=== PATIENT | female | born 1935 | race Caucasian/White ===

== ENCOUNTER 2019-08-14 08:37 | Outpatient (CLI) | payer MEDICARE, SELFPAY ==
--- NOTE | ~2019-08-14 | MM_ITS ---
EXAMINATION: MM screening [facility] BI w jahaira HISTORY: Screening mammogram TECHNIQUE: Craniocaudal and mediolateral oblique 3-D tomosynthesis images were obtained and synthetic 2-D images were generated. CAD analysis was submitted and interpreted. COMPARISON: 07/15/2018, 07/12/2017, 07/06/2016 BREAST PARENCHYMAL COMPOSITION: There are scattered areas of fibroglandular density. FINDINGS: A stable intramammary lymph node is noted in the upper outer quadrant of the left breast. T here is no evidence of suspicious mass, calcification, or architectural distortion to suggest maligna ncy in either breast. There has been no suspicious interval change. IMPRESSION: 1. No mammographic evidence of malignancy. 2. Recommend routine screening mammography while the patient remains in good health. BI-RADS Category 2: Benign finding(s). Reviewed, dictated and finalized at location A. IMPRESSION: 1. No mammographic evidence of malignancy. 2. Recommend routine screening mammography while the patient remains in good he alth. BI-RADS Category 2: Benign finding(s).
== END 2019-08-14 08:38 | disposition home or self-care (01) ==
DX: Z12.31 Encounter for screening mammogram for malignant neoplasm of breast (principal)
CPT/HCPCS: 77063; 77067

== ENCOUNTER 2020-08-15 08:04 | Outpatient (CLI) | payer MEDICARE, SELFPAY ==
--- NOTE | ~2020-08-15 | MM_ITS ---
EXAMINATION: MM screening [facility] BI w jahaira HISTORY: Screening mammogram TECHNIQUE: Craniocaudal and mediolateral oblique 3-D tomosynthesis images were obtained and synthetic 2-D images were generated. CAD analysis was submitted and interpreted. COMPARISON: 08/14/2019, 07/15/2018, 07/12/2017 BREAST PARENCHYMAL COMPOSITION: The breasts are heterogeneously dense, which may obscure small masses . FINDINGS: There is no evidence of suspicious mass, calcification, or architectural distortion to sugg est malignancy in either breast. There has been no suspicious interval change. IMPRESSION: 1. No mammographic evidence of malignancy. 2. Recommend routine screening mammography while the patient remains in good health. BI-RADS Category 1: Negative Reviewed, dictated and finalized at location A. IMPRESSION: 1. No mammographic evidence of malignancy. 2. Recommend routine screening mammography while the patient remains in good he alth. BI-RADS Category 1: Negative
== END 2020-08-15 08:05 | disposition home or self-care (01) ==
DX: Z12.31 Encounter for screening mammogram for malignant neoplasm of breast (principal)
CPT/HCPCS: 77063; 77067

== ENCOUNTER 2021-08-01 10:05 | Emergency (ER) | payer MEDICARE, SELFPAY ==
[2021-08-01 10:14] VITALS: BP 181/85; PULSE 81; RESP 16; TEMP 36.6; O2SAT 99
--- NOTE | 2021-08-01 10:14 | WPDEDEXPGENP ---
HPI - General Ped General Chief complaint: Ear Stated complaint: EAR CLOGGED Time Seen by Provider: 08/01/21 10:15 Source: patient Mode of arrival: ambulatory Limitations: no limitations History of Present Illness HPI narrative: 86-year-old female presented for complaint of right ear feels clogged for about 3 weeks. She endorses approximately once a year she gets her ear wax cleaned out at an urgent care. She denies ear pain, tinnitus, dizziness, nausea, vomiting, fevers or chills. Denies sinus congestion or pressure. She has not used any earwax softener. Related Data Home Medications Medication Instructions Recorded Confirmed atorvastatin 08/01/21 hydrochlorothiazide 08/01/21 metoprolol succinate PO 08/01/21 Allergies Allergy/AdvReac Type Severity Reaction Status Date / Time No Known Allergies Allergy Unverified 12/20/11 18:40 Pediatric Review of Systems Review of Systems: CONSTITUTIONAL: Denies body aches, fever, chills EYES: Denies visual changes, redness, or discharge. ENT: Endorses ear clogged denies rhinorrhea, congestion, sore throat, or otalgia. CARDIOVASCULAR: Denies chest pain, palpitations, or edema. RESPIRATORY: Denies cough or dyspnea. GASTROINTESTINAL: Denies abdominal pain, n/v GENITOURINARY: Denies dysuria or hematuria. SKIN: Denies rash, itching, or wounds. MUSCULOSKELETAL: Denies back pain, joint pain, or myalgia. NEUROLOGIC: Denies headache, numbness, tingling, or weakness. [facility] Comments At time of signature, agree with nursing past medical, surgical, social and family history. There is no relevant family history pertinent to the presenting complaint Pediatric Exam Narrative: Physical exam: GENERAL: Well-appearing HEAD: Normocephalic, atraumatic. EYES: EOMI. No redness or drainage. Conjunctivae normal. ENT: Mucous membranes pink and moist. No rhinorrhea. TMs unable to visualize bilaterally due to cerumen impaction. Throat normal. Uvula midline. NECK: Normal AROM. Supple. No lymphadenopathy. CHEST: No respiratory distress. Clear to auscultation. HEART: Regular rate and rhythm. No murmur appreciated. ABDOMEN: Soft, nontender, nondistended EXTREMITIES: Normal range of motion. SKIN: Warm, dry, no rash. Capillary refill normal. NEURO: Alert and oriented x3. Gait steady. PSYCH: Normal affect. General: Limitations: no limitations Course Course Emergency Course: Patient is aware of diagnosis, understands and agrees to treatment plan. Anticipatory guidance given. Patient agrees to follow-up as directed and is aware of reasons to seek care at the emergency department. Portions of this record may have been created with voice recognition software Level of Care: Express Care Visit Vital Signs Vital signs: Vital Signs Temperature 97.8 F 08/01/21 10:14 Pulse Rate 81 08/01/21 10:14 Respiratory Rate 16 08/01/21 10:14 Blood Pressure 181/85 H 08/01/21 10:14 Pulse Oximetry 99 08/01/21 10:14 Temperature 97.8 F 08/01/21 10:14 Pulse Rate 81 08/01/21 10:14 Respiratory Rate 16 08/01/21 10:14 Blood Pressure 181/85 H 08/01/21 10:14 Pulse Oximetry 99 08/01/21 10:14 Reviewed Procedures Ear Wax Removal Both Ears: Ear Wax Removal Date: 08/01/21 Cerumenolytic Used: other (warm water hydrogen peroxide ) Results: Re-examined: cerumen removed completely TM Examination: TM(s) intact, normal appearance Ear Canal Exam: atraumatic Patient Tolerated Procedure: well and no complications Technique: ear canal irrigated and ear canal curetted Additional Comments: Moderate amount of soft wax removed bilaterally, pt reported she could hear much better. Denies pain, ringing or dizziness. Medical Decision Making MDM Narrative Medical decision making narrative: patient is non-toxic appearing and is in no distress. Patient is appropriate for outpatient treatment and follow-up. Differential Diagnosis Differential Diagn
== END 2021-08-01 10:45 | disposition home or self-care (01) ==
PROVIDERS: Emergency Provider Nurse Practitioner Family
DX: H61.23 Impacted cerumen, bilateral (principal)
CPT/HCPCS: 69209; 99212; G0463

== ENCOUNTER 2021-09-02 07:48 | Outpatient (CLI) | payer MEDICARE, SELFPAY ==
--- NOTE | ~2021-09-02 | MM_ITS ---
EXAMINATION: MM screening [facility] BI w jahaira HISTORY: Screening mammogram TECHNIQUE: Craniocaudal and mediolateral oblique 3-D tomosynthesis images were obtained and synthetic 2-D images were generated. CAD analysis was submitted and interpreted. COMPARISON: 08/15/2020, 08/14/2019, 07/15/2018 bilateral screening mammogram examinations BREAST PARENCHYMAL COMPOSITION: The breasts are heterogeneously dense, which may obscure small masses . FINDINGS: Occasional bilateral benign calcifications. Stable benign appearing circumscribed upper out er quadrant intramammary left lymph node. There is no evidence of suspicious mass, calcification, or architectural distortion to suggest malignancy in either breast. There has been no suspicious interva l change. IMPRESSION: 1. No mammographic evidence of malignancy. 2. Recommend routine screening mammography in one year. BI-RADS Category 2: Benign finding(s). Reviewed, dictated and finalized at location A.
== END 2021-09-02 07:49 | disposition home or self-care (01) ==
DX: Z12.31 Encounter for screening mammogram for malignant neoplasm of breast (principal)
CPT/HCPCS: 77063; 77067

== ENCOUNTER 2022-07-21 10:40 | Emergency (ER) | payer MEDICARE, SELFPAY ==
--- NOTE | 2022-07-21 10:49 | ED.EAR ---
HPI - Ear Problem General Chief complaint: Ear Stated complaint: EARACHE Time Seen by Provider: 07/21/22 11:00 Source: patient and RN notes reviewed Mode of arrival: ambulatory Limitations: no limitations History of Present Illness HPI Narrative: 87-year-old female presents with concern for ear fullness an earache bilaterally. She reports she has been dealing with allergies and has some sinus drainage and congestion. Reports she has been taking an [id number] version of Mucinex D and Sudafed that she picked up on the aisle. She denies fever, aches, chills, sweats. Denies drainage from the ears. She reports she is currently on doxycycline for pneumonia MD Complaint: ear pain Related Data Home Medications Medication Instructions Recorded Confirmed atorvastatin 20 mg tablet 20 mg PO DAILY 08/01/21 07/21/22 hydrochlorothiazide 25 mg tablet 25 mg PO DAILY 08/01/21 07/21/22 metoprolol succinate 50 mg 50 mg PO DAILY 08/01/21 07/21/22 tablet,extended release 24 hr Allergies Allergy/AdvReac Type Severity Reaction Status Date / Time No Known Allergies Allergy Unverified 07/21/22 10:56 Review of Systems Review of Systems: CONSTITUTIONAL: Denies malaise, chills, sweats, or fever. EYES: Denies visual changes, redness, or discharge. ENT: Reports rhinorrhea, congestion. Denies sinus pain, and sore throat. Reports bilateral ear fullness and pain CARDIOVASCULAR: Denies chest pain, palpitations, or edema. RESPIRATORY: Reports improving cough. Denies dyspnea. GASTROINTESTINAL: Denies abdominal pain, nausea, vomiting, diarrhea SKIN: Denies rash or itching. MUSCULOSKELETAL: Denies myalgia. NEUROLOGIC: Denies headache. All systems reviewed & are unremarkable except as noted in HPI and below [facility] Comments At time of signature, agree with nursing past medical, surgical, social and family history. There is no relevant family history pertinent to the presenting complaint Exam Narrative: GENERAL: Well-appearing, well-nourished, and in no acute distress. HEAD: Normocephalic EYES: PERRLA, conjunctivae clear ENT: Nares clear, turbinates edematous, clear discharge. Mucous membranes moist. TM pearly hauser with dull light reflex bilaterally; no tragal tenderness. Oropharynx not erythematous without lesions. Tonsils not enlarged and without exudate, no drooling, no hoarseness, no trismus, uvula midline. NECK: Supple. No lymphadenopathy CHEST: Clear to auscultation, breath sounds equal. No wheezing, rhonchi, rales, or stridor. No respiratory distress, speaks in full sentences. HEART: Regular rate and rhythm. No murmur heard. SKIN: Warm, dry, no rash. NEURO: Alert and oriented x3. PSYCH: Normal mood and affect Course Course Emergency Course: Patient is aware of diagnosis, understands and agrees to treatment plan. Anticipatory guidance given. Patient agrees to follow-up as directed and is aware of reasons to seek care at the emergency department. Portions of this record may have been created with voice recognition software Level of Care: Express Care Visit Vital Signs Vital signs: Reviewed. Medical Decision Making MDM Narrative Medical decision making narrative: Differential diagnosis considered: Vieyra virus, strep pharyngitis, allergic rhinitis, upper respiratory tract infection, sinusitis, rhinosinusitis, nasopharyngitis. viral pharyngitis, otitis media, otitis externa, otitis effusion, cerumen impaction, foreign body. Exam findings show no acute concerns or changes; patient is non-toxic appearing and is in no distress. Patient is appropriate for outpatient treatment and follow-up. Critical Care Time Critical Care Time Critical Care Time: No Discharge Plan Discharge Clinical Impression: Fluid collection of middle ear Patient Disposition: Home, Self-Care Condition: Stable Instructions: Fluid In The Ear (Serous Otitis Media) (ED) Additional Instructions: (Stop taking the Mucinex and is Sudafed that you had
[2022-07-21 10:53] VITALS: BP 184/89; PULSE 72; RESP 16; TEMP 36.6; O2SAT 100
== END 2022-07-21 11:12 | disposition home or self-care (01) ==
PROVIDERS: Emergency Provider Nurse Practitioner
DX: H93.8X3 Other specified disorders of ear, bilateral (principal); I10 Essential (primary) hypertension
CPT/HCPCS: 99213; G0463

== ENCOUNTER 2023-08-05 15:54 | Outpatient (CLI) | payer MEDICARE, SELFPAY ==
--- NOTE | ~2023-08-05 | MM_ITS ---
EXAMINATION: MM screening [facility] BI w jahaira HISTORY: Screening mammogram TECHNIQUE: Craniocaudal and mediolateral oblique 3-D tomosynthesis images were obtained and synthetic 2-D images were generated. CAD analysis was submitted and interpreted. COMPARISON: 09/02/2021, 08/15/2020 bilateral screening mammogram examinations BREAST PARENCHYMAL COMPOSITION: The breasts are heterogeneously dense, which may obscure small masses . FINDINGS: Occasional benign calcifications including some prominent arterial calcification. Stable ci rcumscribed benign-appearing probable intramammary lymph node, upper outer quadrant of the left breas t. There is no evidence of suspicious mass, calcification, or architectural distortion to suggest mal ignancy in either breast. There has been no suspicious interval change. IMPRESSION: 1. No mammographic evidence of malignancy. 2. Recommend routine screening mammography in one year. BI-RADS Category 2: Benign finding(s). Reviewed, dictated and finalized at location A.
== END 2023-08-05 15:55 | disposition home or self-care (01) ==
DX: Z12.31 Encounter for screening mammogram for malignant neoplasm of breast (principal)
CPT/HCPCS: 77063; 77067

== ENCOUNTER 2025-02-27 08:49 | Outpatient (CLI) | payer MEDICARE, SELFPAY ==
--- NOTE | ~2025-02-27 | MM_ITS ---
EXAMINATION: MM screening mathieu BI w jahaira HISTORY: Screening TECHNIQUE: Craniocaudal and mediolateral oblique 3-D tomosynthesis images were obtained and synthetic 2-D images were generated. CAD analysis was submitted and interpreted. COMPARISON: Comparison to multiple prior studies sequentially, with oldest reviewed study dated 07/12/2017. BREAST PARENCHYMAL COMPOSITION: Not dense: There are scattered areas of fibroglandular density. FINDINGS: There is no evidence of suspicious mass, calcification, or architectural distortion to suggest malignancy in either breast. There has been no suspicious interval change. IMPRESSION: 1. No mammographic evidence of malignancy. 2. Recommend routine screening mammography in one year. BI-RADS Category 1: Negative Reviewed, dictated and finalized at location [facility]
--- OUTSIDE RECORDS SUMMARY | 2025-02-27 09:11 | XMS_ITS | Encounter Summary ---
Author Organization [facility] Address 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 Gender Identity Not on file Sexual Orientation Not on file documented as of this encounter Plan of Treatment Upcoming Encounters Date Type Department Care Team (Late st Contact Info) Description 08/07/2025 10:00 AM CDT Office Visit [facility] [place] [address] [place] [address] Yari Syed PA [address] [place] [address] 02/11/2026 10:20 AM UNIVERSITY EXTENSION SPECIALIST Office Visit [facility] [address] [place] [address] Sander Solorzano DO [address] [place] [address] documented as of this encounter Visit Diagnoses Diagnosis Other specified examination- Primary documented in this encounter Care Teams Item Repair Manager Relationship Specialty Start Date End Date Sander Solorzano DO [address] [place] [address] PCP - General Family Practice 02/19/10 documented as of this encounter
--- OUTSIDE RECORDS SUMMARY | 2025-02-27 09:11 | XMS_ITS | Encounter Summary ---
Author Organization [facility] Address [address] [place] [address] Care Team Providers Care Supervisor Shipfitters Name Role Phone Sander Solorzano DO Primary Care Provider Encounter Details Date Type Department Care Team (Late st Contact Info) Description 07/31/2005 Outpatient Historical [facility] Thai West MD [address] [place] [id number] Special Screening for Malignant Neoplasms, Colon (Primary Dx) Social History Tobacco Use Types Packs/Day Years Used Date Smoking Tobacco: Never Assessed Comments Unknown Sex and Gender Information Value Date Recorded Sex Assigned at Not on file Legal Sex Female 4:42 AM [employer]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 Gender Identity Not on file Sexual Orientation Not on file documented as of this encounter Plan of Treatment Upcoming Encounters Date Type Department Care Team (Late st Contact Info) Description 08/07/2025 10:00 AM CDT Office Visit [facility] [address] [place] [address] Yari Syed PA [address] [place] [address] 02/11/2026 10:20 AM 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 Office Visit [facility] [address] [place] [address] Sander Solorzano DO [address] [place] [address] documented as of this encounter Visit Diagnoses Diagnosis Special screening for malignant neoplasms, colon- Primary documented in this encounter Care Teams Supervisor Shipfitters Relationship Specialty Start Date End Date Sander Solorzano DO [address] [place] [address] PCP - General Family Practice 02/19/10 documented as of this encounter
--- OUTSIDE RECORDS SUMMARY | 2025-02-27 09:11 | XMS_ITS | Encounter Summary ---
Author Organization [facility] Address [address] [place] [address] Care Team Providers Care Worm Picker Name Role Phone Sander Solorzano DO Primary Care Provider [phone] Reason for Visit * Reason Comments Remote Monitoring Encounter Details Date Type Department Care Team (Late st Contact Info) Description 11/24/2024 Telephone [facility] [place] [address] [place] [address] Sander Solorzano DO [address] [place] [address] Remote Monitoring Social History Tobacco Use Types Packs/Day Years Used Date Smoking Tobacco: Never Smokeless Tobacco: Never Alcohol Use Standard Drinks/Week Comments Yes 0 (1 standard drink = 0.6 oz pur e alcohol) Occ Comments No Sex and Gender Information Value Date Recorded Sex Assigned at Not on file Legal Sex Female 4:42 AM GREY PERCHER Gender Identity Not on file Sexual Orientation Not on file 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 Ceci Ponce, RN to [facility] [place] Cnc Laser Operator Yari Syed PA (Selected Message) ASIM 11/24/24 10:56 AM Assts: [facility]; Patient is scheduled for appt. Faxed records request to [facility]. * Telephone Encounter - Ceci Ponce RN - 11/24/2024 10:44 AM CDT 11/24/2024 10:44 AM Returned call and spoke with Lori. Discussed she fell on 11/21 fell and hurt her left arm and sliced open her right elbow and steri strips were placed with bandaid and neosporin and scraped her rightleg and she was taken to [facility] on [facility], xrays were done on the left arm. Using ice and thereis quite a bit of swelling and bruising and elevating at rest, taking tylenol as needed. Denies anynumbness or tingling and denies pain currently. Patient is scheduled for appointment 11/28/24 when she is back in town with PREET Greenberg per daughterrequest. Ceci WEBER * Telephone Encounter - No Pena PCA - 11/24/2024 9:59 AM CDT Copied from [facility] #[id number]. Topic: Patient Reported Outcome Metrics >> Nov 24, 2024 9:53 AM No Thakur wrote: Caller Name: daughter on phi Callback Number: Telephone Information: Call Notes: Caller is reporting Follow up information from an appointment Patient needs to report Daughter states fell down on the stair carrying a luggage on the and went [facility]- patient is elbow is still bruise up, daughter states patient is currently in [place] and will be back on Nov 27. Daughter is requesting to look at the report sent from [facility]. Daughter request for patient to be seen next Wednesday, contact center tried to schedule no available appointment on that day. documented in this encounter Plan of Treatment Upcoming Encounters Date Type Department Care Team (Late st Contact Info) Description 08/07/2025 10:00 AM CDT Office Visit [facility] [place] [address] [place] [phone] Yari Syed PA [address] [place] [phone] 02/11/2026 10:20 AM GREY PERCHER Office Visit [facility] [place] [address] [place] [phone] Sander Solorzano DO [address] [place] [phone] documented as of this encounter Visit Diagnoses Not on filedocumented in this encounter Care Teams Worm Picker Relationship Specialty Start Date End Date Sander Solorzano DO [address] [place] [phone] PCP - General Family Practice 02/19/10 documented as of this encounter
--- OUTSIDE RECORDS SUMMARY | 2025-02-27 09:11 | XMS_ITS | Clinical Summary ---
Author Organization [facility] Address [address] [place] [place] [address] Phone Care Team Providers Care Hot Mill Roller Name Role Phone Rashad, Andrew Primary Care Provider [phone] Allergies No known active allergies Medications MULTIVITAMIN/IRON/ FOLIC ACID (CENTRUM ULTRA WOMEN'S ORAL) Daily Active aspirin (ECOTRIN EC) 81 mg Tablet, Delayed Release (E.C.) Take 81 mg by mouth daily. Active Vit A,C,E-Sczr-Gblocq [id number] xpkf-an-dezp Capsule 2 tab(s) Active valACYclovir (VALTREX) 1 gram tablet TAKE 1 TABLET BY MOUTH EVERY DAY 90 Tablet 1 11/05/19 21 Active Additional Information Patient taking differently: DAILY PRN, TAKE 1 TABLET BY MOUTH EVERY DAY, Reported on 02/12/2025 VITAMIN B COMPLEX ORAL Take by mouth. Activ e albuterol sulfate HFA 90 mcg/actuation aerosol inhaler Take 2 Puffs by inhalation every 4 hours as needed for Wheezing or Shortness of Breath. Rinse mouth after usage 8.5 Gram 07/15/19 23 Active calcium as carbonate (Calcium 600) 1,500 mg (600 mg elemental) Tablet Take 1 Tablet (600 mg) by mouth 2 times daily. 10/12/19 24 Active cholecalciferol, Vitamin D3, 50 mcg (2,000 unit) Tablet Take 1 Tablet (2,000 Units) by mouth daily. 10/12/19 24 Active fluticasone propionate (FLONASE) 50 mcg/spray [place]ck[place], Suspension nasal inhalerIndications :Allergic rhinitis, unspecified seasonality, unspecified trigger Administer 2 Sprays in each nostril daily. shake before using 16 Gram 11/18/19 24 Active ALPRAZolam (XANAX) 0.25 mg tabletIndications: Anxiety state TAKE 1 TABLET(0.25 MG) BY MOUTH EVERY NIGHT NEEDED FOR ANXIETY 30 Tablet 5 08/23/19 25 Active atorvastatin (LIPITOR) 20 mg tabletIndications: Mixed hyperlipidemia TAKE 1 TABLET(20 MG) BY MOUTH DAILY 100 Tablet 1 09/13/19 25 Active hydroCHLOROthiazid e 25 mg tabletIndications: Benign hypertension TAKE 1 TABLET(25 MG) BY MOUTH DAILY 100 Tablet 1 10/25/19 25 Active metoprolol succinate (TOPROL XL) 50 mg Extended Release 24 hour tabletIndications: Benign hypertension TAKE 1 AND 1/2 TABLETS BY MOUTH EVERY DAY 150 Tablet 11/16/19 25 Active respiratory syncytial virus recombinant, adjuvanted (AREXVY) vaccine injection kit Inject 0.5 mL (120 mcg) by intramuscular injection one time only for 1 dose. 0.5 mL 02/13/20 25 025 Active Problems Patient Care Coordination No te Formatting of this note migh t be different from the original. Primary Care: Sander Soolrzano DO Referring Provider: Sander Solorzano DO [address] [place] [address] Other: Problem Noted Date Diagnosed Date Atherosclerosis of aorta 08/03/2022 Overview (08/03/2022): CXR 07/14/22 Other female genital prolapse 02/17/2019 Assessment & Plan (08/21/2024 9:19 PM CDT): - Continues to use pessary and hormone therapy as prescribed Exudative age-related macula r degeneration of right eye with active choroidal neovascularization 08/11/2018 Assessment & Plan (08/21/2024 9:19 PM CDT): Stable. - Receives an injection every 3 months - Reports no pain, blurry vision, or double vision - Some irritation in the eye, but does not affect vision - Follow-up with eye doctor on Wednesday to address irritation Benign hypertension 02/06/2018 Assessment & Plan (08/21/2024 9:19 PM CDT): - Blood pressure managed with hydrochlorothiazide and metoprolol, taken daily - [facility] - Advised to continue current medication regimen Mixed hyperlipidemia 02/06/2018 Assessment & Plan (08/21/2024 9:19 PM CDT): - Currently taking Lipitor daily - Advised to continue current medication regimen - Blood work is due and will be ordered - Lipid panel, CMP, CBC/diff, TSH ordered Cystocele, midline 02/10/2017 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 Plan STFU History of TIA (transient ischemic attack) 02/09 Senile osteoporosis 01/22/2012 Assessment & Plan (08/21/2024 9:19 PM CDT): - Takes calcium and vitamin D supplements - Continue current regimen - She does not want to treat with prescription medication Encounters Date Type Department Care Team Description 02/26/2025 Refill [facility] [place] [address] [place] [address] Sander Solorzano DO Benign hypertension 02/20/2025 External Device Data STL ABSTRACTION Provider, Abstract 02/12/2025 2:20 PM CONSTRUCTION [employer]IT[employer] Office Visit [facility] [address] [place] [address] Sander Solorzano DO Routine general medical examination at a health care facility (Primary Dx); Mixed hyperlipidemia; Benign hypertension; Traumatic hematoma of right upper arm, subsequent encounter 01/26/2025 Telephone [facility] [address] [place] [address] Sander Solorzano, DO Wants Appointment 01/05/2025 10:15 AM CDT Clinical Support [facility] [address] [place] [address] Immunization due (Primary Dx) 12/22/2024 10:00 AM CDT Office Visit [facility] [address] [place] [address] Sander Solorzano DO Traumatic hematoma of right upper arm, subsequent encounter (Primary Dx); Benign hypertension; Mixed hyperlipidemia; Exudative age-related macular degeneration of right eye with active choroidal neovascularization (CMS/HCC); Senile osteoporosis; Other female genital prolapse 12/05/2024 External Device Data STL ABSTRACTION Provider, Abstract 12/01/2024 7:30 AM CDT - 12/01/2024 11:59 PM CDT Hospital Encounter [facility] Akila Gonzalez [address] [place] [address] Yari Syed PA Discharge Disposition: Home or Self Care 11/29/2024 Results Follow-Up [facility] [address] [place] [address] Yari Syed PA PROTIME-INR, CBC WITH DIFFERENTIAL, US DOPPLER VENOUS ARM LEFT 11/28/2024 2:30 PM CDT Office Visit [facility] [address] [place] [address] Yari Syed PA Contusion of right upper extremity, initial encounter (Primary Dx); Other specified injury of vein at forearm level, left arm, initial encounter from Last 3 Months Immunizations Immunization Administration Dates Next Due (PFIZER KIERSTEN)(12 YR UP PRIMA RY SERIES) COVID-19 VACCINE - EMERGENCY USE AUTHORIZATION, MRNA, KIERSTEN(PF) 30 MCG/0.3 ML IM SUSP 05/26/2021 (PFIZER)(12 YR UP) COVID-19 VACCINE - EMERGENCY USE AUTHORIZATION, MRNA, [id number](PF) 30 MCG/0.3 ML IM SUSP 06/16/2020,05/19/2020 (PREVNAR 13)(6 WKS UP) PNEUM OCOCCAL CONJUGATE (PCV13) 0.5 ML, IM 01/22/2015 (SPIKEVAX) (12 YRS UP PRIMAR Y SERIES) COVID-19 VACCINE - [id number](PF) 100 MCG/0.5 ML IM SUSP 05/26/2021,06/16/2020,05/19/2020 (TENIVAC)(7 YRS UP) TETANUS AND DIPHTHERIA TOXOIDS, ADSORBED (5 LF OF TETANUS TOXOID AND 2 LF OF DIPHTHERIA TOXOID), 0.5ML (PF), IM 07/25/2004 INFLUENZA VACCINE HIGH DOSE QUADRIVALENT 65 YR UP PF IM 02/19/2023,01/19/2022,01/07/2021,12/21 INFLUENZA VACCINE HIGH DOSE TRIVALENT SPLIT VIRUS, (65 YR UP), 0.5ML (PF), IM 01/05/2025,03/01/2024 INFLUENZA VACCINE QUADRIVALE NT 3 YR UP PF IM 02/08/2018 Influenza Vaccine High Dose 65+ Yrs IM 9 PREVNAR (PCV13) pneumococcal 13-valent conjugate Vaccine 01/22/2015 Pneumococcal Polysaccharide Vacc 23-adi IM SCHIP 01/25/2004 Zoster Vaccine Live SQ 03/16/2008 Family History Medical History Relation Name Comments Hypertension Brother Kidney Disease Brother both kidneys removed/passed Parkinson's Disease Brother Healthy Daughter 1 Healthy Daughter 2 Heart Attack Father age 65 Heart Failure Father Hypertension Father Diabetes Maternal Grandmother Lung Cancer Maternal Uncle 1 Colon Cancer Maternal Uncle 2 Intestinal Dementia Mother Stroke Mother mini Thyroid Cancer Paternal Uncle Breast Cancer Neg Hx Ovarian Cancer Neg Hx Uterine Cancer Neg Hx Relation Name Status Comments Brother (Age 80) Daughter 1 Alive Daughter 2 Alive Father (Age 65) [place] (smoker, non excercise) Maternal Grandfather Maternal Grandmother Maternal Uncle 1 Maternal Uncle 2 Mother (Age 95) Old age Paternal Grandfather (Age 90) Ol d age Paternal Grandmother Paternal Uncle Social History Tobacco Use Types Packs/Day Years Used Date Smoking Tobacco: Never Smokeless Tobacco: Never Tobacco Cessation:Counseling Given: Not Answered Alcohol Use Standard Drinks/Week Comments Yes 0 (1 standard drink = 0.6 oz pur e alcohol) Occ Comments No Sex and Gender Information Value Date Recorded Sex Assigned at Not on file Legal Sex Female 4:42 AM [employer] Gender Identity Not on file Sexual Orientation Not on file 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 Not on file Not on file Last Filed Vital Signs Vital Sign Reading Time Taken Comments Blood Pressure 133/86 02/12/2025 2:18 PM [employer] Pulse 66 02/12/2025 2:18 PM [employer] Temperature 36.7 C (98 F) 08/09/2024 10:27 AM CDT Respiratory Rate 18 08/05/2022 1:15 PM CDT Oxygen Saturation 96% 12/22/2024 9:50 AM CDT Inhaled Oxygen Concentration - - Weight 56 kg (123 lb 8 oz) 02/12/2025 2:18 PM CS T Height 154.9 cm (5' 1) 02/12/2025 2:18 PM [employer] Body Mass Index 23.34 02/12/2025 2:18 PM [employer] Plan of Treatment Upcoming Encounters Date Type Department Care Team (Late st Contact Info) Description 08/07/2025 10:00 AM CDT Office Visit [facility] [place] [address] [place] [address] Yari Syed PA [address] [place] [address] 02/11/2026 10:20 AM CONSTRUCTION J[employer]IT[employer] Office Visit [facility] [address] [place] [address] Sander Solorzano DO [address] [place] [address] Health Maintenance Due Date Last Done Comments DTAP/TDAP/TD VACCINES (1 - Tdap) 07/26/2004 07/26/19 05 ZOSTER VACCINE (2 of 3) 05/11/2008 03/16/2008 RSV VACCINE (60+ or ) (1 - 1-dose 75+ series) 2012 BREAST CANCER SCREENING 08/04/2024 08/05/19 24, 09/02/2021, 08/15/2020, Additional history exists COVID-19 Vaccine (2024-2 6 season) 2024 05/26/2021, 05/26/2021, 06/16/2020, Additional history exists OSTEOPOROSIS SCREENING 10/10/2025 , 01/29/2022, 12/13/2019, Additional history exists PNEUMOCOCCAL VACCINE 50+ YEARS Completed 1 , 01/22/2015, 01/25/2004 INFLUENZA VACCINE Completed 01/05/2025, , 02/19/2023, Additional history exists [place] ([place]) Preventative Visit/Annual Wellness Visit Completed 02/12/2025, 08/09/2024, 03/01/2024, Additional history exists Procedures Procedure Name Priority Date/Time Associated Diagnosis Comments US DOPPLER VENOUS ARM LEFT Routine 12/01/2024 8:00 AM CDT Contusion of right upper extremity, initial encounter Other specified injury of vein at forearm level, left arm, initial encounter CBC WITH DIFFERENTIAL Routine 11/28/2024 4:20 PM CDT Contusion of right upper extremity, initial encounter PROTIME-INR Routine 11/28/2024 4:20 PM CDT Contusion of right upper extremity, initial encounter XR DEXA BONE DENSITY AXIAL 1 OR MORE SITES Routine 10/11/2023 2:21 PM CDT Senile osteoporosis MAMMO SCREENING BILAT Routine 08/05/2023 10:56 AM CDT from Last 3 Months or Most Recently Relevant to Health Maintenance Results * US DOPPLER VENOUS ARM LEFT (12/01/2024 8:00 AM CDT) Anatomical Region Laterality Modality Upper Extremity Ultrasound 12/01/2024 7:33 AM CDT Narrative 12/01/2024 1:10 PM CDT [place] [address] [place] [address] [email or web address] Venous Exam Limited Upper Extremity Duplex Patient: Kaye Tadeo Study ID: [id number] Gender: F : 1935 Age: 89 Race: CAU Height Study Date: 12/01/2024 Weight: Access. #: [id number] *Referring Physician:Yari Camacho Tabatha Marie Stabler *Ordering Physician:Yari Camacho *Plastic Surgery Nurse:Shelby Rubin History: Swelling in the left upper extremity. PMH: No prior study is available for comparison. Risk factors: Recent trauma. Study data: Study status: Routine. Left upper extremity venous duplex. Doppler flow study including spectral analysis, color and hauser scale imaging. Birthdate: Patient birthdate: 1935. Age: Patient is 89year(s) old. Sex: gender: female. Study date: Study date: 12/01/2024. Study time: 07:33 AM. Location: Vascular laboratory. Patient status: Outpatient. Impressions Study data: No prior study is available for comparison. No evidence of deep or superficial vein thrombosis involving the veins of the left upper extremity. Incidental findings: A hematoma is noted incidentally on the left at the area of concern measuring 4.49 x 1.81 x 5.25 cm. Tables: Venous: + +-------+ + !Location !Overall!Flow properties ! + +-------+ + !Left internal jugular!Patent !Phasic; spontaneous; compressible ! + +-------+ + !Left subclavian !Patent !Phasic; spontaneous; normal augmentation; ! ! ! !compressible ! + +-------+ + !Left axillary !Patent !Phasic; spontaneous; normal augmentation; ! ! ! !compressible ! + +-------+ + !Left brachial !-------!Compressible ! + +-------+ + !Left cephalic !-------!Compressible ! + +-------+ + !Left basilic !-------!Compressible ! + +-------+ + !Right subclavian !Patent !Phasic; spontaneous; normal augmentation; ! ! ! !compressible ! + +-------+ + *Velocities are expressed in cm/s, Diameters are expressed in mm Prepared and Electronically Authenticated Kwadwo Michelle [id number] Procedure Note Kwadwo Michelle MD - 12/01/[address] [address] [email or web address] Venous Exam Limited Upper Extremity Duplex Patient: Kaye Tadeo Study ID: [id number] Gender: F : 1935 Age: 89 Race: CAU Height Study Date: 12/01/2024 Weight: Access. #: [id number] *Referring Physician:Yari Camacho Tabatha Marie Stabler *Ordering Physician:Yari Camacho *Plastic Surgery Nurse:* Shelby Russell History: Swelling in the left upper extremity. PMH: No prior studyis available for comparison. Risk factors: Recent trauma. Study data: Study status: Routine. Left upper extremity venousduplex. Doppler flow study including spectral analysis, color and hauser scale imaging. Birthdate: Patient birthdate: 1935. Age: Patient is 89year(s) old. Sex: gender: female. Study date: Study date: 12/01/2024. Study time: 07:33 AM. Location: Vascular laboratory.Patient status: Outpatient. Impressions Study data: No prior study is available for comparison. No evidence ofdeep or superficial vein thrombosis involving the veins of the left upper extremity. Incidental findings: A hematoma is noted incidentally on the left at thearea of concern measuring 4.49 x 1.81 x 5.25 cm. Tables: Venous: + +-------+ + !Location !Overall!Flow properties! + +-------+ + !Left internal jugular!Patent !Phasic; spontaneous; compressible! + +-------+ + !Left subclavian !Patent !Phasic; spontaneous; normal augmentation;! ! ! !compressible! + +-------+ + !Left axillary !Patent !Phasic; spontaneous; normal augmentation;! ! ! !compressible! + +-------+ + !Left brachial !-------!Compressible! + +-------+ + !Left cephalic !-------!Compressible! + +-------+ + !Left basilic !-------!Compressible! + +-------+ + !Right subclavian !Patent !Phasic; spontaneous; normal augmentation;! ! ! !compressible! + +-------+ + *Velocities are expressed in cm/s, Diameters are expressed in mm Prepared and Electronically Authenticated Kwadwo Michelle [id number] us Yari OVIEDO ORDERABLES F inal Result * CBC WITH DIFFERENTIAL (11/28/2024 4:20 PM CDT) Pathologist [facility] WBC 7.7 3.8 - 10.8 Thousand/u L [facility] RBC 3.90 3.80 - 5.10 Million/uL [facility] HEMOGLOBIN 12.8 11.7 - 15.5 g/dL [facility] HEMATOCRIT 38.7 35.0 - 45.0 % [facility] MCV 99.2 80.0 - 100.0 fL [facility] MCH 32.8 27.0 - 33.0 pg [facility] MCHC 33.1 32.0 - 36.0 g/dL [facility] Comment: For adults, a slight decrease in the calculated MCHC value (in the range of 30 to 32 g/dL) is most likely not clinically significant; however, it should be interpreted with caution in correlation with other red cell parameters and the patient's clinical condition. RDW 11.5 11.0 - 15.0 % [facility] PLATELETS 198 140 - 400 Thousand/u L [facility] MPV 10.6 7.5 - 12.5 fL [facility] NEUTROPHIL ABSOLUTE 4,913 1,500 - 7,800 cells/uL [facility] LYMPHOCYTE ABSOLUTE 1,810 850 - 3,900 cells/uL [facility] MONOCYTE ABSOLUTE 839 200 - 950 cells/uL [facility] EOSINOPHIL ABSOLUTE 100 15 - 500 cells/uL [facility] BASOPHILS ABSOLUTE 39 0 - 200 cells/uL [facility] NEUTROPHIL 63.8 % [facility] LYMPHOCYTES 23.5 % [facility] MONOCYTE 10.9 % [facility] EOSINOPHILS 1.3 % [facility] BASOPHILS 0.5 % [facility] Comment: Test Performed at: [facility] [address] [place] [id number] Marcos Miles MD Blood 11/28/2024 4:20 PM CDT 11/28/2024 4:20 PM CDT us Yari OVIEDO HEMATOLOGY ORDERA BLES Final Result [facility] [phone] [facility] [address] * PROTIME-INR (11/28/2024 4:20 PM CDT) INR 1.0 [facility] Comment: Reference Range 0.9-1.1 Moderate-intensity Warfarin Therapy 2.0-3.0 Higher-intensity Warfarin Therapy 3.0-4.0 PROTIME 11.0 9.0 - 11.5 sec [facility] odilon Greene Comment: For additional information, please refer to http://education.Ingen.io/faq/DRA572 (This link is being provided for informational/ educational purposes only.) Test Performed at: [place] [address] [place] [address] Marcos Miles Blood 11/28/2024 4:20 PM CDT 11/28/2024 4:20 PM CDT us Yari OVIEDO HEMATOLOGY ORDERA BLES Final Result [facility] [phone] [place] [address] [place] [address] * XR DEXA BONE DENSITY AXIAL 1 OR MORE SITES (10/11/2023 2:21 PM CDT) Anatomical Region Laterality Modality Computed Radiogr aphy 10/11/2023 2:21 PM CDT Impressions 10/11/2023 2:29 PM CDT FINDINGS/IMPRESSION: Bone density measurements were made of the lumbar spine, hips, and left forearm. Lowest T score of -3.3, previously -3.1, consistent with osteoporosis and high risk of fracture. FRAX: 10 year probability of major osteoporotic fracture is 28.6 %. 10 year probability of hip fracture is 11.3 %. Please refer to the full report available in [facility] under the PACS Images tab. If a faxed copy is needed, please call [phone]. DICTATION LOCATION: [facility] Narrative 10/11/2023 2:29 PM CDT SUMMARY DEXA REPORT DATE: 10/11/2023 2:21 PM INDICATION: Postmenopausal Procedure Note Marylou Myers MD - 10/11/2023 SUMMARY DEXA REPORT DATE: 10/11/2023 2:21 PM INDICATION: Postmenopausal FINDINGS/IMPRESSION: Bone density measurements were made of the lumbar spine, hips, and left forearm. Lowest T score of -3.3, previously -3.1, consistent with osteoporosis and high risk of fracture. FRAX: 10 year probability of major osteoporotic fracture is 28.6 %. 10 year probability of hip fracture is 11.3 %. Please refer to the full report available in [facility] under the PACS Images tab. If a faxed copy is needed, please call [phone]. DICTATION LOCATION: [facility] us Boris Araujo PA-C DIAGNOSTIC IMAGING ORD ERABLES Final Result * MAMMO SCREENING BILAT (08/05/2023 10:56 AM CDT) Anatomical Region Laterality Modality Breast Bilateral Mammography us Abstract Provider MAMMO ORDERABLES Edited Result - Final from Last 3 Months or Most Recently Relevant to Health Maintenance Insurance [facility] [id number] Advance Directives For more information, please contact: [phone] Documents on File Type Date Recorded Patient Paedodontist Expl anation Advance Directive Living Will 05/12/2024 3:34 PM 2024-05-12 Advance Directive Care Teams Hot [employer] Roller Relationship Specialty Start Date End Date Sander Solorzano DO [address] [place] [id number] PCP - General Family Practice 02/19/10
--- OUTSIDE RECORDS SUMMARY | 2025-02-27 09:11 | XMS_ITS | Encounter Summary ---
Author Organization [facility] Address [address] [place] [address] Care Team Providers Care Rehabilitation Engineer Name Role Phone Sander Solorzano DO Primary Care Provider [phone] Encounter Details Date Type Department Care Team (Late st Contact Info) Description 05/10/2001 Outpatient Historical [facility] Tamiko Pate BONE & CARTILAGE DIS NOS (Primary Dx) Social History Tobacco Use Types Packs/Day Years Used Date Smoking Tobacco: Never Assessed Comments Unknown Sex and Gender Information Value Date Recorded Sex Assigned at Not on file Legal Sex Female 4:42 AM [employer] Gender Identity Not on file Sexual Orientation Not on file documented as of this encounter Plan of Treatment Upcoming Encounters Date Type Department Care Team (Late st Contact Info) Description 08/07/2025 10:00 AM CDT Office Visit [facility] [address] [place] [address] Yari Syed PA [address] [place] [address] 02/11/2026 10:20 AM [employer] Office Visit [facility] [address] [place] [address] Sander Solorzano DO [address] [place] [address] documented as of this encounter Visit Diagnoses Diagnosis Disorder of bone and cartilage, unspecified- Primary documented in this encounter Care Teams Rehabilitation Engineer Relationship Specialty Start Date End Date Sander Solorzano DO [address] [place] [address] PCP - General Family Practice 02/19/10 documented as of this encounter
--- OUTSIDE RECORDS SUMMARY | 2025-02-27 09:11 | XMS_ITS | Clinical Summary ---
Author Organization [facility] Address [address] [place] [address] Care Team Providers Care Electronic Scale Assembler And Tester Name Role Phone Sander Solorzano Primary Care Provider [phone] Source Comments [facility],non-owned Affiliates and Associated Physician Practices is amultiple site organization consisting of ambulatory clinics and hospital sitesin [place], [place], [place] and [place]. This disclosure is being madepursuant to the Care Everywhere program and may not contain all information available regarding this patient. Last updated 17.[facility] Allergies No known active allergies Medications * Be aware that medications may not be up to date on this document. Alwaysverify current medications with the patient. atorvastatin (LIPITOR) 20 MG tablet TAKE 1 TABLET(20 MG) BY MOUTH DAILY 11/01/2020 Active aspirin EC (ECOTRIN) 81 MG tablet Take 81 mg by mouth once daily Active metoprolol succinate XL 24hr (TOPROL XL) 100 MG tablet TK 1 T PO QD 10/10/2019 Active valACYclovir (VALTREX) 1 GM tablet TK 1 T PO QD 01/06/2020 Active hydroCHLOROthiaz annika (HYDRODIURIL) 25 MG tablet Take 25 mg by mouth once daily 04/12/2020 Active Active Problems Problem Noted Date Diagnosed Date Cerebral infarction 12/22/2011 Family History Medical History Relation Name Comments Heart Disease Father Diabetes Maternal Grandmother Defects Maternal Uncle Defects Paternal Uncle Relation Name Status Comments Father Maternal Grandmother Maternal Uncle Paternal Uncle Social History Tobacco Use Types Packs/Day Years Used Date Smoking Tobacco: Never Smokeless Tobacco: Never Alcohol Use Standard Drinks/Week Comments No 0 (1 standard drink = 0.6 oz pur e alcohol) Comments Unknown Sex and Gender Information Value Date Recorded Sex Assigned at Not on file Legal Sex Female 6:48 PM PROJECT MANAGER RETAIL Gender Identity Not on file Sexual Orientation Not on file Last Filed Vital Signs Vital Sign Reading Time Taken Comments Blood Pressure 140/86 11/08/2020 5:47 PM CDT Pulse 78 11/08/2020 5:47 PM CDT Temperature 36.7 C (98.1 F) 11/08/2020 5:47 PM CDT Respiratory Rate 18 11/08/2020 5:47 PM CDT Oxygen Saturation 97% 11/08/2020 5:47 PM CDT Inhaled Oxygen Concentration - - Weight 54.9 kg (121 lb) 11/08/2020 5:47 PM CDT Height 154.9 cm (5' 1) 11/08/2020 5:47 PM CDT Body Mass Index 22.86 11/08/2020 5:47 PM CDT Plan of Treatment Health Maintenance Due Date Last Done Comments BONE DENSITY TESTING 1935 DTAP/TDAP/TD VACCINES (1 - Tdap) 1956 PNEUMOCOCCAL VACCINE 50+ (1 of 1 - PCV) 06/30/1987 ZOSTER VACCINE (1 of 2) 06/30/1987 Respiratory Syncytial Virus (RSV) Vaccine Pt: or over 60 yrs (1 - 1-dose 75+ series) 2012 DEPRESSION SCREENING 04/05/2024 COVID-19 VACCINE (4 - 2024-2 6 season) 2024 06/16/2020, 05/19/2020, 05/19/2020 INFLUENZA VACCINE (#1) 2024 9, 02/08/2018 HEPATITIS B VACCINE Aged Out No longe r eligible based on patient's age to complete this topic HIB VACCINE Aged Out No longer eligi ble based on patient's age to complete this topic HPV VACCINE Aged Out No longer eligi ble based on patient's age to complete this topic MENINGOCOCCAL (Group B) VACCINE SHARED DECISION-MAKING Aged Out No longer eligible based on patient's age to complete this topic MENINGOCOCCAL GROUPS A/C/Y/W VACCINE Aged Out No longer eligible b ased on patient's age to complete this topic Insurance [facility] MANAGED MEDICARE ADV Care Teams Electronic Scale Assembler And Tester Relationship Specialty Start Date End Date Sander Solorzano DO PCP - General 12/20/11
--- OUTSIDE RECORDS SUMMARY | 2025-02-27 09:11 | XMS_ITS | Encounter Summary ---
Author Organization [facility] Address [address] [place] [address] Care Team Providers Care Chain Maker Name Role Phone Sander Solorzano DO Primary Care Provider [phone] Reason for Visit * Reason Comments Med Refill Encounter Details Date Type Department Care Team (Late Contact Info) Description 02/26/2025 Refill [facility] [address] [place] [address] Sander Solorzano DO [address] [place] [address] Benign hypertension Social History Tobacco Use Types Packs/Day Years Used Date Smoking Tobacco: Never Smokeless Tobacco: Never Alcohol Use Standard Drinks/Week Comments Yes 0 (1 standard drink = 0.6 oz pur e alcohol) Occ Comments No Sex and Gender Information Value Date Recorded Sex Assigned at Not on file Legal Sex Female 4:42 AM DRAGLINE ENGINEER Gender Identity Not on file Sexual Orientation Not on file 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 Not on file Not on file documented as of this encounter Plan of Treatment Upcoming Encounters Date Type Department Care Team (Late Contact Info) Description 08/07/2025 10:00 AM CDT Office Visit [facility] [address] [place] [address] Yari Syed PA [address] [place] [address] 02/11/2026 10:20 AM DRAGLINE ENGINEER Office Visit [facility] [address] [place] [phone] Sander Solorzano DO [address] [place] [address] documented as of this encounter Visit Diagnoses Diagnosis Benign hypertension Essential hypertension, benign documented in this encounter Care Teams Chain Maker Relationship Specialty Start Date End Date Sander Solorzano DO [address] [place] [phone] PCP - General Family Practice 02/19/10 documented as of this encounter
== END 2025-02-27 08:50 | disposition home or self-care (01) ==
LOC: ANHFOHIMG 08:50
DX: Z12.31 Encounter for screening mammogram for malignant neoplasm of breast (principal)
CPT/HCPCS: 77063; 77067